=== PATIENT | female | born 1985 | race Caucasian/White ===

== ENCOUNTER 2022-08-13 06:58 | Emergency (ER) | payer OTHER ==
[~2022-08-13] VITALS: Ht 157 cm; Wt 55.0 kg
[2022-08-13] MEDS ORDERED: ONDANSETRON 4 MG/2 ML (SDV) Z0FRAN IVP ONE (07:15)
[2022-08-13] MEDS ORDERED: KETOROLAC 30 MG/ML VIAL IVP ONE (07:15)
[2022-08-13 07:24] LABS: BILIRUBIN,URINE NEGATIVE (NEGATIVE); CLARITY,URINE SL CLOUDY; COLOR,URINE YELLOW; GLUCOSE, URINE (UA) NEGATIVE (NEGATIVE); KETONES,URINE NEGATIVE (NEGATIVE); LEUKOCYTE ESTERASE ,URINE NEGATIVE (NEGATIVE); NITRITE,URINE NEGATIVE (NEGATIVE); PROTEIN,URINE 1+ (NEGATIVE)
[2022-08-13 07:25] LABS: BASOPHILS # (AUTO) 0.1 10^3/uL (0.0-0.1); BASOPHILS % (AUTO) 1 % (0-10); EOSINOPHILS # (AUTO) 0.2 10^3/uL (0.0-0.3); EOSINOPHILS % (AUTO) 3 % (0-10); HEMATOCRIT 37 % (35-52); HEMOGLOBIN 12.8 g/dL (11.5-16.0); LYMPHOCYTES # (AUTO) 1.8 10^3/uL (1.0-4.0); LYMPHOCYTES % (AUTO) 32 % (12-44); MEAN CORPUSCULAR HEMOGLOBIN 29 pg (25-34); MEAN CORPUSCULAR HGB CONC 35 g/dL (32-36); MEAN CORPUSCULAR VOLUME 85 fL (80-99); MEAN PLATELET VOLUME 9.4 fL (9.0-12.2); MONOCYTES # (AUTO) 0.5 10^3/uL (0.0-1.0); MONOCYTES % (AUTO) 8 % (0-12); NEUTROPHILS # (AUTO) 3.2 10^3/uL (1.8-7.8); NEUTROPHILS % (AUTO) 56 % (42-75); PLATELET COUNT 276 10^3/uL (130-400); WHITE BLOOD COUNT 5.7 10^3/uL (4.3-11.0)
[2022-08-13 07:26] VITALS: BP 113/79
[2022-08-13 07:35] LABS: BACTERIA,URINE FEW /HPF
[2022-08-13 07:45] LABS: BILIRUBIN,TOTAL 0.3 MG/DL (0.1-1.0); CALCIUM 8.9 MG/DL (8.5-10.1); CREATININE SERUM 0.65 MG/DL (0.60-1.30); POTASSIUM 3.6 MMOL/L (3.6-5.0)
[2022-08-13 07:46] LABS: ALBUMIN 4.3 GM/DL (3.2-4.5); TOTAL PROTEIN 6.6 GM/DL (6.4-8.2)
--- NOTE | 2022-08-13 08:26 | Diagnostic Imaging Report ---
PROCEDURE: CT abdomen and pelvis without contrast. TECHNIQUE: Multiple contiguous axial images were obtained through the abdomen and pelvis without the use of intravenous contrast. Auto Exposure Controls were utilized during the CT exam to meet ALARA standards for radiation dose reduction. INDICATION: 36-year-old female, left flank pain. CORRELATION STUDY: None. FINDINGS: LOWER THORAX: Clear of infiltrate. 3-4 mm nodule lateral left lower lobe. LIVER: Unremarkable on unenhanced imaging. GALLBLADDER: Present and unremarkable. No bile duct dilatation. SPLEEN: Unremarkable. PANCREAS: Unremarkable. ADRENAL GLANDS: Unremarkable. KIDNEYS: Right kidney and collecting system unremarkable. There is a rather sizable, 7 x 6 x 9 mm somewhat triangular shaped calcification most proximal aspect of the left ureter just distal to the UPJ. This results in moderate left-sided obstruction with mild engorgement of the left kidney. Additional smaller punctate non-obstructing left renal stone. Mild perinephric and ureteric stranding. The remainder of the left ureter otherwise unremarkable. ABDOMINAL AORTA: Unremarkable, nonaneurysmal. A few shotty aortocaval and mesenteric lymph nodes. GASTROINTESTINAL TRACT: No obstruction or inflammation. Normal appendix. URINARY BLADDER: Decompressed, grossly unremarkable. REPRODUCTIVE: Intrauterine conceptive device is present. Appears to be in satisfactory position. OSSEOUS STRUCTURES: No acute abnormality. OTHER: None. IMPRESSION: 1. Sizable, approximately 9 mm triangular shaped calcification at the proximal aspect of the left ureter currently resulting in moderate obstruction. Given the shape and size of the stone, there is a very low likelihood of spontaneous passage. Additional nonobstructing left renal stone. 2. Small, indeterminate left lower lobe pulmonary nodule. Dictated by: Dictated on workstation # [id number]
[2022-08-13] MEDS ORDERED: NS IV 1000 ML 1,000 ML IV SCH (09:00)
--- NOTE | 2022-08-13 10:09 | ED GU-Female ---
General Chief Complaint: - Reproductive Stated Complaint: BACK PAIN Nursing Triage Note: Patient has presented to ER with cc of left flank pain x 2 days. She reports that she has been taking tylenol and ibuprofen for the pain but this morning the pain has become unbearable and she is very nauseated. She is concerned that she has a kidney stone. She did have blood in her urine yesterdays on a lab dip stick. Source: patient Exam Limitations: no limitations History of Present Illness Date Seen by Provider: Aug 13, 2022 Time Seen by Provider: 07:00 Initial Comments Patient is a 36-year-old female presents with intermittent left flank pain for the past 2 days. Patient reports blood in her urine and nausea without vomiting fever chills or sweats. Pain is moderate to severe and not relieved with rest but is worse with palpation and excessive movement. No urinary frequency urgency or dysuria. No fever chills or sweats. No history of kidney stones or bladder infections. IUD in place. Timing/Duration: other Severity/Quality: other Location: other Radiation: urethral Activities at Onset: other Sexual [place] History: other Associated Symptoms: other Allergies and Home Medications Allergies Coded Allergies: Penicillins (Verified Allergy, Mild, 08/13/22) Patient Home Medication List Home Medication List Reviewed: Yes Review of Systems Review of Systems Constitutional: see HPI EENTM: see HPI Respiratory: see HPI Cardiovascular: see HPI Gastrointestinal: see HPI Genitourinary: see HPI Musculoskeletal: see HPI Skin: see HPI Psychiatric/Neurological: See HPI Endocrine: See HPI Hematologic/Lymphatic: See HPI All Other Systemes Reviewed Negative Unless Noted: No Past Zdvoykj-Hlovcf-Vfeggr Hx Patient Social History Tobacco Use?: No Substance use?: No Alcohol Use?: No Pt feels they are or have been: No Physical Exam Vital Signs Vital Signs - First Documented 08/13/22 07:26 Temp 36.1 Pulse 82 Resp 16 B/P (MAP) 113/79 (90) Pulse Ox 98 O2 Delivery Room Air Capillary Refill : Height, Weight, BMI Height: '" Weight: lbs. oz. kg; 22.00 BMI Method: General Appearance: moderate distress HEENT: PERRL/EOMI Neck: full range of motion, supple Cardiovascular: regular rate, rhythm Respiratory: lungs clear Gastrointestinal: non tender, soft Back: CVA tenderness (L) Neurologic/Psychiatric: alert, normal mood/affect, oriented x 3 Focused Exam Sepsis Stage: Ruled Out Progress/Results/Core Measures Suspected Sepsis SIRS Temperature: Pulse: 82 Respiratory Rate: 16 Laboratory Tests 08/13/22 07:15: White Blood Count 5.7 Blood Pressure 113 /79 Mean: 90 Laboratory Tests 08/13/22 07:15: Creatinine 0.65, Platelet Count 276, Total Bilirubin 0.3 Results/Orders Lab Results Laboratory Tests Test 08/13/22 07:01 08/13/22 07:15 Range/Units Urine Color YELLOW Urine Clarity SL CLOUDY Urine pH 6.0 5-9 Urine Specific [place] >=1.030 1.016-1.022 Urine Protein 1+ H NEGATIVE Urine Glucose (UA) NEGATIVE NEGATIVE Urine Ketones NEGATIVE NEGATIVE Urine Nitrite NEGATIVE NEGATIVE Urine Bilirubin NEGATIVE NEGATIVE Urine Urobilinogen 0.2 < = 1.0 MG/DL Urine Leukocyte Esterase NEGATIVE NEGATIVE Urine RBC (Auto) 2+ H NEGATIVE Urine RBC 10-25 H /HPF Urine WBC 2-5 /HPF Urine Squamous Epithelial Cells 2-5 /HPF Urine Crystals NONE /LPF Urine Bacteria FEW H /HPF Urine Casts NONE /LPF Urine Mucus MODERATE H /LPF Urine Culture Indicated YES White Blood Count 5.7 4.3-11.0 10^3/uL Red Blood Count 4.36 3.80-5.11 10^6/uL Hemoglobin 12.8 11.5-16.0 g/dL Hematocrit 37 35-52 % Mean Corpuscular Volume 85 80-99 fL Mean Corpuscular Hemoglobin 29 25-34 pg Mean Corpuscular Hemoglobin Concent 35 32-36 g/dL Red Cell Distribution Width 12.8 10.0-14.5 % Platelet Count 276 130-400 10^3/uL Mean Platelet Volume 9.4 9.0-12.2 fL Immature Granulocyte % (Auto) 0 % Neutrophils (%) (Auto) 56 42-75 % Lymphocytes (%) (Auto) 32 12-44 % Monocytes (%) (Auto) 8 0-12 % Eosinophils (%) (Auto) 3 0-10 % Basophils (%) (Auto) 1 0-10 % Neutrophils # (Auto) 3.2 1.8-7.8 10^3/uL Lymphocytes # (Auto) 1.8 1.0-4.0 10^3/uL Monocytes # (Auto) 0.5 0.0-1.0 10^3/uL Eosinophils # (Auto) 0.2 0.0-0.3 10^3/uL Basophils # (Auto) 0.1 0.0-0.1 10^3/uL Immature Granulocyte # (Auto) 0.0 0.0-0.1 10^3/uL Sodium Level 140 135-145 MMOL/L Potassium Level 3.6 3.6-5.0 MMOL/L Chloride Level 106 98-107 MMOL/L Carbon Dioxide Level 27 21-32 MMOL/L Anion Gap 7 5-14 MMOL/L Blood Urea Nitrogen 10 7-18 MG/DL Creatinine 0.65 0.60-1.30 MG/DL Estimat Glomerular Filtration Rate 118 BUN/Creatinine Ratio 15 Glucose Level 86 70-105 MG/DL Calcium Level 8.9 8.5-10.1 MG/DL Corrected Calcium 8.7 8.5-10.1 MG/DL Total Bilirubin 0.3 0.1-1.0 MG/DL Aspartate Amino Transf (AST/SGOT) 14 5-34 U/L Alanine Aminotransferase (ALT/SGPT) 9 0-55 U/L Alkaline Phosphatase 57 40-136 U/L Total Protein 6.6 6.4-8.2 GM/DL Albumin 4.3 3.2-4.5 GM/DL My Orders Orders - KELLI BARBOSA DO Urinalysis (08/13/22 07:11) Urine Bedside (08/13/22 07:12) Cbc With Automated Diff (08/13/22 07:12) Comprehensive Metabolic Panel (08/13/22 07:12) Ct Abdomen/Pelvis Wo (08/13/22 07:12) Ketorolac Injection (Toradol Injection) (08/13/22 07:15) Ondansetron Injection (Zofran Injectio (08/13/22 07:15) Urine Culture (08/13/22 07:01) Ns Iv 1000 Ml (Sodium Chloride 0.9%) (08/13/22 09:00) Medications Given in ED Current Medications Medications Dose Ordered Sig/Kaden Route Start Time Stop Time Status Last Admin Dose Admin Ketorolac Tromethamine 30 mg ONCE ONCE IVP 08/13/22 07:15 08/13/22 07:16 DC 08/13/22 07:19 30 MG Ondansetron HCl 4 mg ONCE ONCE IVP 08/13/22 07:15 08/13/22 07:16 DC 08/13/22 07:18 4 MG Vital Signs/I&O 08/13/22 07:26 Temp 36.1 Pulse 82 Resp 16 B/P (MAP) 113/79 (90) Pulse Ox 98 O2 Delivery Room Air Capillary Refill : Blood Pressure Mean: 90 Departure Communication (Admissions) CT abdomen pelvis without contrast, proximal 9 mm ureteral stone with moderate hydronephrosis and ureter. Acute renal colic with large for renal stone with moderate obstruction. No UTI. Kidney function preserved. Toradol, Zofran and IV fluids given with improvement. Dr. Hook to see in outpatient surgery at [facility] upon discharge from the ER. Patient agrees to drive straight to the hospital upon discharge from the ED. Impression Primary Impression: Left flank pain Additional Impression: Obstructive uropathy Disposition: 01 HOME, SELF-CARE Condition: Stable Departure-Patient Inst. Decision time for Depature: 10:08 Referrals: ALYSE MORGAN MD (PCP/Family) Primary Care Physician Patient Instructions: Kidney Stone, Adult ED Add. Discharge Instructions: Please remain n.p.o. and drive straight to [facility] outpatient surgery waiting area upon discharge from the emergency department. All discharge instructions reviewed with patient and/or family. Voiced understanding. KELLI BARBOSA DO Aug 13, 2022 10:09
== END 2022-08-13 10:18 | disposition home or self-care (01) ==
LOC: ER FS 07:00
DX: N13.2 Hydronephrosis with renal and ureteral calculous obstruction (principal)
CPT/HCPCS: 36415; 74176; 80053; 81000; 84703; 85025; 87088